=== PATIENT | male | born 1965 | race Asian ===

== ENCOUNTER 2024-01-04 10:15 | Outpatient (RCR) | payer MEDICAID, SELFPAY ==
--- NOTE | 2023-12-25 12:11 | CTCTRTNOTE_ITS ---
[facility] [address] [place], [place] [address] Weekly Management Date: 12/25/2023 ?? Name: ISABELLA Sanchez.: 1965 A. Patient is currently at [address]. B. Patient is experiencing abdominal pain and nausea. Rest 1 more week. Electronically signed by: Fredy Ross M.D. 12/25/2023 12:08 PM
[2024-01-03 11:12] LABS: Basophils % (Auto) 0 % (0-2.5); Eosinophils % (Auto) 0 % (0-10); Hematocrit 26.2 % (41.0-53.0); Hemoglobin 8.9 g/dL (13.5-16.0); Immature Granulocytes % (Auto) 0 % (0-0); Immature Granulocytes Auto 0.04 Thou/mm3 (0.00-0.00); Lymphocytes # (Auto) 0.4 Thou/mm3 (1.0-4.8); Lymphocytes % (Auto) 4 % (10-50); Mean Corpuscular Hemoglobin 31.6 pg (25.0-35.0); Mean Corpuscular Volume 93 fL (80-100); Monocytes # (Auto) 0.2 Thou/mm3 (0.0-0.8); Monocytes % (Auto) 3 % (0-12); Neutrophils # (Auto) 8.9 Thou/mm3 (1.8-7.7); Neutrophils % (Auto) 93 % (37-80); Nucleated Red Blood Cell % 0 /100 WBC (0); Platelet Count 90 Thou/mm3 (140-440); RDW Standard Deviation 71.7 fL (35.1-43.9); Red Blood Count 2.82 Miln/mm3 (4.50-5.90); White Blood Count 9.6 Thou/mm3 (3.8-10.6)
[2024-01-03 11:44] LABS: Alanine Aminotransferase 29 U/L (10-49); Albumin/Globulin Ratio 0.5 (1.2-2.2); Alkaline Phosphatase 302 U/L (46-116); Anion Gap 9 (7-16); Aspartate Amino Transferase 52 U/L (0-34); BUN/Creatinine Ratio 51 Ratio (12-20); Bilirubin,Total 7.7 mg/dL (0.3-1.2); Blood Urea Nitrogen 72 mg/dL (9-23); Calcium 7.8 mg/dL (8.3-10.6); Calcium (Corrected) 9.4 mg/dL (8.5-10.1); Carbon Dioxide 18.8 mMol/L (20.0-31.0); Chloride 100 mMol/L (98-107); Creatinine (Component) 1.4 mg/dL (0.6-1.3); Globulin 4.1 gm/dL (2.3-3.5); Glucose 151 mg/dL (74-106); Osmolality,Calculated 281 (275-295); Potassium 4.3 mMol/L (3.4-5.1); Sodium 128 mMol/L (136-145); Total Protein 6.1 gm/dL (5.7-8.2); eGFR 59 See Note
[2024-01-09 06:29] LABS: CA 19-9 Antigen* 4239 U/mL (<34)
== END 2024-01-20 23:59 | disposition home or self-care (01) ==
LOC: SCTC 10:15
PROVIDERS: Referring Provider Radiology Therapeutic Radiology; Visit Provider Internal Medicine Hematology & Oncology
DX: C25.0 Malignant neoplasm of head of pancreas (principal); G89.3 Neoplasm related pain (acute) (chronic); K74.60 Unspecified cirrhosis of liver; K76.6 Portal hypertension; I95.9 Hypotension, unspecified
CPT/HCPCS: 36591; 80053; 85025; 86301; 96360; 96361; 96365; 99212; A4216; J1453; J1642; G0463